=== PATIENT | male | born 1990 | race Caucasian/White ===

== ENCOUNTER 2017-04-16 20:37 | Emergency (ER) | payer BC, OTHER ==
[~2017-04-16] VITALS: Ht 182.9 cm; Wt 104.3 kg
[2017-04-16] MEDS ORDERED: AMPH30TA2 PO (21:33)
--- NOTE | 2017-04-16 22:09 | ED General ---
General Chief Complaint: Upper Extremity Stated Complaint: RT HAND MIDDLE FINGER SWELLING Nursing Triage Note: Pt reports right middle finger swelling and redness around the nail bed. pt reports noticing the redness and discomfort on friday, then worsened throughout the week. pt reports 10/09 at this time. Nursing Sepsis Screen: No Definite Risk Source of Information: Patient Exam Limitations: No Limitations History of Present Illness Time Seen by Provider: 22:09 Allergies and Home Medications Allergies Coded Allergies: No Known Drug Allergies (Unverified , 04/16/17) Home Medications Dextroamphetamine/Amphetamine 30 Mg Tablet, 30 MG PO DAILY, (Reported) Past [id number] Hx Patient Social History Alcohol Use: Occasionally Uses Alcohol Beverage of Choice: Beer Recreational Drug Use: No Smoking Status: Never a Smoker 2nd Hand Smoke Exposure: No Recent Foreign Travel: No Contact w/Someone Who Travel: No Recent Infectious Disease Expo: No Recent Hopitalizations: No Immunizations Up To Date Tetanus Booster (TDap): More than 5yrs PED Vaccines UTD: Yes Date of Influenza Vaccine: Apr 02, 2017 Seasonal Allergies Seasonal Allergies: No Surgeries History of Surgeries: No Respiratory History of Respiratory Disorde: No Cardiovascular History of Cardiac Disorders: No Neurological History of Neurological Disord: Yes Neurological Disorders: Concussion Reproductive System Sexually Transmitted Disease: No HIV/AIDS: No Genitourinary History of Genitourinary Disor: No Gastrointestinal History of Gastrointestinal Di: No Musculoskeletal History of Musculoskeletal Dis: Yes (right Boxers fracture) Musculoskeletal Disorders: Fractures Endocrine History of Endocrine Disorders: No HEENT History of HEENT Disorders: No Cancer History of Cancer: No Psychosocial History of Psychiatric Problem: Yes Behavioral Health Disorders: ADD/ADHD Integumentary History of Skin or Integumenta: No Blood Transfusions History of Blood Disorders: No Physical Exam Vital Signs Vital Sign - Last 12Hours 04/16/17 21:22 Temp 98.1 Pulse 92 Resp 18 B/P (MAP) 170/90 Pulse Ox 98 O2 Delivery Room Air Capillary Refill : Less Than 3 Seconds Progress/Results/Core Measures Suspected Sepsis Recent Fever Within 48 Hours: No Infection Criteria Present: Suspected New Infection New/Unexplained Altered Menta: No Sepsis Screen: No Definite Risk Sepsis Diagnosis: SIRS Temperature:98.1 Pulse: 92 Respiratory Rate: 18 Blood Pressure 170 /90 Mean: 116 Results/Orders My Orders Orders - RANDALL BRAND Hydrocodone/Apap 5/325 Tablet (Lortab 5 (04/16/17 22:14) Lidocaine 1% Injection (Xylocaine 1% Inj (04/16/17 22:14) Vital Signs/I&O Vital Sign - Last 12Hours 04/16/17 21:22 Temp 98.1 Pulse 92 Resp 18 B/P (MAP) 170/90 Pulse Ox 98 O2 Delivery Room Air Capillary Refill : Less Than 3 Seconds Blood Pressure Mean: 116 Departure Impression Impression: Primary Impression: Paronychia of finger Disposition: HOME, SELF-CARE Condition: Improved Departure-Patient Inst. Decision time for Depature: 22:17 Referrals: NO,LOCAL PHYSICIAN (PCP/Family) Primary Care Physician Patient Instructions: Paronychia (DC) Add. Discharge Instructions: All discharge instructions reviewed with patient and/or family. Voiced understanding. Medications as directed. Tylenol extra strength over the counter as directed for pain. Ibuprofen 800 mg by mouth every 8 hours as needed for pain. Elevate the hand on pillows above the level of the heart. Ice packs or heating pads as needed. Shower with antibacterial soap. All up with your family practitioner for recheck as an outpatient. Return to the emergency department for worsened symptoms or any other concerns. Scripts Sulfamethoxazole/Trimethoprim (Bactrim Ds Tablet) 1 Each Tablet 1 EACH PO BID, #14 TAB 0 Refills Prov: RANDALL BRAND 04/16/17 Work/School Note: Local Medical Staff Listing RANDALL BRAND Apr 16, 2017 22:09
[2017-04-16] MEDS ORDERED: LIDOCAINE 1% INJ 20 ML (XYLOCAINE) VIAL INJ STA (22:14)
[2017-04-16] MEDS ORDERED: HYDROcodone/APAP 5 MG/325 MG (LORTAB) TAB PO STA (22:14)
[2017-04-16] MEDS ORDERED: SULF1TAB35 PO (22:20)
[2017-04-16] MEDS ORDERED: RX-TRIMETH/SULFA. 160-800 MG (BACTRIM DS) TAB PPK#2 PO STA (22:23)
[2017-04-16 23:25] VITALS: BP 141/81
== END 2017-04-16 23:25 | disposition home or self-care (01) ==
LOC: ER 20:41
DX: L03.011 Cellulitis of right finger (principal); F90.9 Attention-deficit hyperactivity disorder, unspecified type